=== PATIENT | male | born 1940 | race Caucasian/White ===

== ENCOUNTER 2022-02-28 10:39 | Emergency (ER) | payer MEDICARE, SELFPAY ==
[2022-02-28 11:05] VITALS: BP 136/72; PULSE 82; RESP 18; TEMP 36.2; O2SAT 97
--- NOTE | 2022-02-28 11:22 | ED.SKABFB ---
HPI - Skin/Abscess/Foreign Bdy General Chief complaint: Skin/Abscess/Foreign Body Stated complaint: wound check Time Seen by Provider: 02/28/22 11:22 Source: patient Mode of arrival: ambulatory Limitations: no limitations History of Present Illness HPI narrative: 81-year-old male presents with complaint of skin tear to right forearm. Reports that [place] and his arm was hit by escalator stair teeth. States that someone stopped the escalator before damage to right forearm was more severe. He did go to ER after injury and had a dressing placed. Was given a tetanus and antibiotics at ER. He is here today for a wound check. Was told to leave dressing in place for 3 days but he did not want to remove it himself due to the type of dressing that was applied. Range of motion and distal neurovascularly intact to right upper extremity. All systems reviewed and negative except as noted above. Related Data Home Medications Medication Instructions Recorded Confirmed allopurinol 300 mg DAILY 02/28/22 02/28/22 aspirin 81 mg PO DAILY 02/28/22 02/28/22 atorvastatin 10 mg DAILY 02/28/22 02/28/22 cholecalciferol (vitamin D3) 50 mcg PO DAILY 02/28/22 02/28/22 dapagliflozin [Farxiga] 10 mg DAILY 02/28/22 02/28/22 dutasteride 0.5 mg PO DAILY 02/28/22 02/28/22 insulin glargine U-300 conc 60 unit SUBCUT DAILY 02/28/22 02/28/22 [Toujeo Max U-300 SoloStar] metformin 750 mg PO BID 02/28/22 02/28/22 metoprolol tartrate 25 mg BID 02/28/22 02/28/22 multivit with min-folic acid 1 tablet PO DAILY 02/28/22 02/28/22 [Adult One Daily Multivitamin] niacinamide 500 mg PO DAILY 02/28/22 02/28/22 valsartan-hydrochlorothiazide 1 tablet DAILY 02/28/22 02/28/22 Allergies Allergy/AdvReac Type Severity Reaction Status Date / Time Sulfa (Sulfonamide Allergy Unknown Verified 02/28/22 11:44 Antibiotics) Review of Systems Review of Systems: CONSTITUTIONAL: Denies fever, chills, or sweats. EYES: Denies visual changes, redness, or discharge. ENT: Denies rhinorrhea, congestion, sore throat, or otalgia. CARDIOVASCULAR: Denies chest pain, palpitations, or edema. RESPIRATORY: Denies cough or dyspnea. GASTROINTESTINAL: Denies abdominal pain, nausea, vomiting, or diarrhea. GENITOURINARY: Denies dysuria or hematuria. SKIN: Denies rash or itching. Reports skin tears to right forearm. MUSCULOSKELETAL: Denies back pain, joint pain, or myalgia. NEUROLOGIC: Denies headache, numbness, or weakness. PSYCHIATRIC: Denies anxiety or depression. All other systems reviewed are negative, except as documented in HPI. PMFSH Comments At time of signature, agree with nursing past medical, surgical, social and family history. There is no relevant family history pertinent to the presenting complaint. Exam Narrative: GENERAL: This is a well-nourished, well-developed patient, in no apparent distress. HEAD: normocephalic, atraumatic. EYES: PERRL. Sclera clear/white. Vision is grossly intact. EARS: External ears normal NOSE: External nose normal NECK: Neck supple, non-tender without lymphadenopathy, masses or thyromegaly. CARDIOVASCULAR: Regular rate and rhythm without murmurs, gallops, or rubs. RESPIRATORY: Clear to auscultation. Breath sounds equal bilaterally. No wheezes, rales, or rhonchi. SKIN: warm, Dry, with no suspicious lesions or rash, good texture and turgor. Tegaderm and Vaseline gauze dressing removed from right forearm. Multiple skin tears noted to posterior aspect of right forearm. Weeping. No signs of infection. Nonadherent and gauze dressing applied by chest, RN. NEURO: awake, alert, and oriented to person, place and time. There were no obvious focal neurologic abnormalities. EXTREMITIES: Normal range of motion to all extremities. Course Course Level of Care: Express Care Visit Vital Signs Vital signs: Vital Signs Temperature 36.2 C L 02/28/22 11:05 Pulse Rate 82 02/28/22 11:05 Respiratory
== END 2022-02-28 11:50 | disposition home or self-care (01) ==
PROVIDERS: Emergency Provider Nurse Practitioner Family
DX: S51.811A Laceration without foreign body of right forearm, initial encounter (principal); W10.0XXA Fall (on)(from) escalator, initial encounter; I10 Essential (primary) hypertension; E11.9 Type 2 diabetes mellitus without complications; M10.9 Gout, unspecified
CPT/HCPCS: 99202; G0463